=== PATIENT | female | born 1945 | race Caucasian/White ===

== ENCOUNTER → 2021-03-06 | Outpatient (CLI) | payer MEDICARE, OTHER ==
[~2021-03-06] VITALS: Ht 172 cm; Wt 59.0 kg
[~2021-03-06] MED LIST: CASIRIVIMAB/IMDEVIMAB 2,400 MG/NS 250 ML IV ONE; EPINEPHrine INJECTION 1 MG/ML AMP IM PRN; diphenhydrAMINE 50 MG/ML INJ (BENADRYL) IV PRN
[2021-03-06 13:40] VITALS: BP 163/91
[2021-03-06 15:20] VITALS: BP 149/86
[2021-03-06 16:10] VITALS: BP 145/91
== END ==
LOC: INFUSION 13:53
PROVIDERS: ATTEND Nurse Practitioner Family
DX: Z23 Encounter for immunization (principal); U07.1 COVID-19; J20.8 Acute bronchitis due to other specified organisms; I10 Essential (primary) hypertension

== ENCOUNTER 2022-10-04 08:34 | Emergency (ER) | payer MEDICARE ==
[~2022-10-04] VITALS: Ht 157 cm; Wt 58.9 kg
--- NOTE | 2022-10-04 08:59 | ED General ---
General Chief Complaint: General Problems/Pain Stated Complaint: WEAKNESS Nursing Triage Note: PT PRESENTS TO ED VIA EMS FROM HOME FOR COMPLAINTS OF INCREASED WEAKNESS STARTING THIS AM. PT REPORTS TO EMS THAT HE WAS UNABLE TO GET PT OFF THE TOILET BY HIMSELF THIS AM. PT STATES SHE WAS DIAGNOSED WITH A UTI LAST NIGHT WITH A HOME TEST AND HER DR PRESCRIBED ANTIBIOTICS. Source of Information: Patient Exam Limitations: No Limitations History of Present Illness Date Seen by Provider: Oct 04, 2022 Time Seen by Provider: 08:42 Initial Comments 77-year-old female brought to the emergency department by EMS this morning, chief complaint generalized weakness. 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 She is essentially full care at home with her who is elderly and also has cancer. This morning apparently he was able to get her to the toilet but was unable to get her off the toilet due to weakness. According to the through EMS the patient recently had an at-home test for urinary tract infection. Her primary care provider recommended Keflex, the prescription was filled and started last night. She denies any complaints of pain. No headache, fever. No URI, flu symptoms. No abdominal pain, nausea or vomiting. She chronically wears a pad and is at times incontinent. No other complaints of recent illness injury or trauma. Timing/Duration: Other (chronic worsening) Severity: Moderate Associated Systoms: Denies Symptoms Allergies and Home Medications Allergies Coded Allergies: morphine (Unverified Allergy, Unknown, 03/01/06) Patient Home Medication List Home Medication List Reviewed: Yes Review of Systems Review of Systems Constitutional: see HPI EENTM: no symptoms reported Respiratory: no symptoms reported Cardiovascular: no symptoms reported Gastrointestinal: no symptoms reported Musculoskeletal: no symptoms reported, muscle cramps (left leg discomfort/weakness (chronic due to stroke - worse recently per patient)) Skin: no symptoms reported All Other Systems Reviewed Negative Unless Noted: Yes Past Dofknek-Paonwk-Npxvbg Hx Patient Social History Tobacco Use?: No Substance use?: No Alcohol Use?: No Pt feels they are or have been: No Past Medical History Surgery/Hospitalization HX: pmh: cva, mi, l sided paralysis Physical Exam Vital Signs Vital Signs - First Documented 10/04/22 08:40 Temp 37.6 Pulse 94 Resp 18 B/P (MAP) 168/82 (110) Pulse Ox 92 Capillary Refill : Less Than 3 Seconds Height, Weight, BMI Height: '" Weight: lbs. oz. 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 Norm as Tested, Other (chronic hemiplegia left upper extremity > lower extremity; normal sensation throughout per patient) Skin: Normal Color, Warm/Dry Progress/Results/Core Measures Suspected Sepsis SIRS Temperature: Pulse: 94 Respiratory Rate: 18 Laboratory Tests 10/04/22 08:54: White Blood Count 14.1H Blood Pressure 168 /82 Mean: 110 Laboratory Tests 10/04/22 08:54: Creatinine 0.96, Platelet Count 388 Results/Orders Lab Results Laboratory Tests Test 10/04/22 08:54 10/04/22 09:02 Range/Units White Blood Count 14.1 H 4.3-11.0 10^3/uL Red Blood Count 3.31 L 3.80-5.11 10^6/uL Hemoglobin 12.1 11.5-16.0 g/dL Hematocrit 32 L 35-52 % Mean Corpuscular Volume 98 80-99 fL Mean Corpuscular Hemoglobin 37 H 25-34 pg Mean Corpuscular Hemoglobin Concent 38 H 32-36 g/dL Red Cell Distribution Width 16.3 H 10.0-14.5 % Platelet Count 388 130-400 10^3/uL Mean Platelet Volume 9.1 9.0-12.2 fL Immature Granulocyte % (Auto) 1 % Neutrophils (%) (Auto) 89 H 42-75 % Lymphocytes (%) (Auto) 5 L 12-44 % Monocytes (%) (Auto) 5 0-12 % Eosinophils (%) (Auto) 0 0-10 % Basophils (%) (Auto) 0 0-10 % Neutrophils # (Auto) 12.5 H 1.8-7.8 10^3/uL Lymphocytes # (Auto) 0.7 L 1.0-4.0 10^3/uL Monocytes # (Auto) 0.6 0.0-1.0 10^3/uL Eosinophils # (Auto) 0.1 0.0-0.3 10^3/uL Basophils # (Auto) 0.1 0.0-0.1 10^3/uL Immature Granulocyte # (Auto) 0.1 0.0-0.1 10^3/uL Neutrophils % (Manual) 82 % Lymphocytes % (Manual) 4 % Monocytes % (Manual) 4 % Eosinophils % (Manual) 0 % Basophils % (Manual) 0 % Band Neutrophils 10 % Poikilocytosis SLIGHT Anisocytosis SLIGHT Elliptocytes SLIGHT Sodium Level 137 135-145 MMOL/L Potassium Level 3.3 L 3.6-5.0 MMOL/L Chloride Level 103 98-107 MMOL/L Carbon Dioxide Level 21 21-32 MMOL/L Anion Gap 13 5-14 MMOL/L Blood Urea Nitrogen 14 7-18 MG/DL Creatinine 0.96 0.60-1.30 MG/DL Estimat Glomerular Filtration Rate 60 BUN/Creatinine Ratio 15 Glucose Level 120 H 70-105 MG/DL Calcium Level 8.6 8.5-10.1 MG/DL Urine Color YELLOW Urine Clarity CLEAR Urine pH 7.5 5-9 Urine Specific [place] 1.020 1.016-1.022 Urine Protein TRACE H NEGATIVE Urine Glucose (UA) NEGATIVE NEGATIVE Urine Ketones NEGATIVE NEGATIVE Urine Nitrite POSITIVE H NEGATIVE Urine Bilirubin NEGATIVE NEGATIVE Urine Urobilinogen 0.2 < = 1.0 MG/DL Urine Leukocyte Esterase TRACE H NEGATIVE Urine RBC (Auto) TRACE-I H NEGATIVE Urine RBC 2-5 H /HPF Urine WBC 2-5 /HPF Urine Crystals NONE /LPF Urine Bacteria MODERATE H /HPF Urine Casts NONE /LPF Urine Mucus NEGATIVE /LPF Urine Culture Indicated YES My Orders Orders - ROBINA RICHMOND MD Cbc With Automated Diff (10/04/22 08:54) Basic Metabolic Panel (10/04/22 08:54) Ua Culture If Indicated (10/04/22 08:54) Manual Differential (10/04/22 08:54) [employer] Supervisor Consult (10/04/22 09:25) Urine Culture (10/04/22 09:02) Cephalexin Capsule (Keflex Capsule) (10/04/22 10:28) Vital Signs/I&O 10/04/22 10/04/22 08:40 13:45 Temp 37.6 Pulse 94 87 Resp 18 18 B/P (MAP) 168/82 (110) 161/76 Pulse Ox 92 98 Capillary Refill : Less Than 3 Seconds Blood Pressure Mean: 110 Progress Note : Time: 13:24 Progress Note mop worker, Iliana has seen the patient and talked with her and her spouse. He is not ready at this time to make a decision on home health versus assisted living versus long term placement. He was provided with a list of local resources. He would like to take her home this evening. He has a grandson who can help him this evening and periodically with transfers. Patient does have a urinary tract infection. A sample has been sent for culture. She has been prescribed Keflex. My recommendation will be that she continues this medication until completion of the antibiotic. She has no clinical or objective findings to warrant further studies from the emergency department. No complaints of chest pain, cough or shortness of breath. Chest x-ray considered but history and physical examination does not support the need. No other concerns for advanced imaging such as CT chest or abdomen pelvis or head. She does not have any new strokelike symptoms. Patient was offered her cephalexin as prescribed by her primary care physician as she missed her morning dose, she declined saying she would rather take the medicine she was already prescribed. I also offered IV antibiotics and she declined. Patient recommended to follow-up with her primary care physician. All questions have been sought and answered. Patient is stable for discharge. Departure Impression Primary Impression: Urinary tract infection Qualified Codes: N39.0 - Urinary tract infection, site not specified Additional Impression: Generalized weakness Disposition: 01 HOME, SELF-CARE Condition: Stable Departure-Patient Inst. Decision time for Depature: 13:25 Referrals: JOSELUIS WSAIN MD (PCP/Family) Primary Care Physician Patient Instructions: Urinary Tract Infection, Adult (DC), Weakness ED Add. Discharge Instructions: Encourage fluids and good nutrition so that she stays well-hydrated. Take the antibiotics as prescribed by your primary care provider as directed until they are finished. If she has any fevers, worsening weakness, shortness of breath or new, emergent concerns please bring her back to the emergency department for reevaluation. Follow-up with your primary care physician in 1 week. Copy Copies To 1: JOSELUIS SWAIN MD, KATHRYN M MD Oct 04, 2022 08:59
[2022-10-04 09:02] LABS: BASOPHILS # (AUTO) 0.1 10^3/uL (0.0-0.1); BASOPHILS % (AUTO) 0 % (0-10); EOSINOPHILS # (AUTO) 0.1 10^3/uL (0.0-0.3); EOSINOPHILS % (AUTO) 0 % (0-10); HEMATOCRIT 32 % (35-52); HEMOGLOBIN 12.1 g/dL (11.5-16.0); LYMPHOCYTES # (AUTO) 0.7 10^3/uL (1.0-4.0); LYMPHOCYTES % (AUTO) 5 % (12-44); MEAN CORPUSCULAR HEMOGLOBIN 37 pg (25-34); MEAN CORPUSCULAR HGB CONC 38 g/dL (32-36); MEAN CORPUSCULAR VOLUME 98 fL (80-99); MEAN PLATELET VOLUME 9.1 fL (9.0-12.2); MONOCYTES # (AUTO) 0.6 10^3/uL (0.0-1.0); MONOCYTES % (AUTO) 5 % (0-12); NEUTROPHILS # (AUTO) 12.5 10^3/uL (1.8-7.8); NEUTROPHILS % (AUTO) 89 % (42-75); PLATELET COUNT 388 10^3/uL (130-400); WHITE BLOOD COUNT 14.1 10^3/uL (4.3-11.0)
[2022-10-04 09:12] LABS: POTASSIUM 3.3 MMOL/L (3.6-5.0)
[2022-10-04 09:13] LABS: CALCIUM 8.6 MG/DL (8.5-10.1)
[2022-10-04 09:17] LABS: CREATININE SERUM 0.96 MG/DL (0.60-1.30)
[2022-10-04 09:18] LABS: BILIRUBIN,URINE NEGATIVE (NEGATIVE); CLARITY,URINE CLEAR; COLOR,URINE YELLOW; GLUCOSE, URINE (UA) NEGATIVE (NEGATIVE); KETONES,URINE NEGATIVE (NEGATIVE); LEUKOCYTE ESTERASE ,URINE TRACE (NEGATIVE); NITRITE,URINE POSITIVE (NEGATIVE); PH,URINE 7.5 (5-9); PROTEIN,URINE TRACE (NEGATIVE)
[2022-10-04 09:26] LABS: BACTERIA,URINE MODERATE /HPF
[2022-10-04 09:42] LABS: BAND NEUTROPHILS 10 %; BASOPHILS % (MANUAL) 0 %; EOSINOPHILS % (MANUAL) 0 %; LYMPHOCYTES % (MANUAL) 4 %; MONOCYTES % (MANUAL) 4 %; NEUTROPHILS % (MANUAL) 82 %; POIKILOCYTOSIS SLIGHT
[2022-10-04 09:43] LABS: ANISOCYTOSIS SLIGHT; ELLIPT/OVALOCYTES SLIGHT
[2022-10-04] MEDS ORDERED: CEPHALEXIN 250 MG (KEFLEX) CAP PO STA (10:28)
[2022-10-04 13:45] VITALS: BP 161/76
== END 2022-10-04 13:47 | disposition home or self-care (01) ==
LOC: EDUNIT# 08:34 → ER 08:36
DX: N39.0 Urinary tract infection, site not specified (principal); R53.1 Weakness
CPT/HCPCS: 36415; 51701; 80048; 81000; 85007; 85027; 87077; 87088; 87186

== ENCOUNTER → 2022-10-11 | Outpatient (CLI) | payer MEDICARE | LOC: GIR 17:25 | PROVIDERS: ATTEND Family Medicine | DX: Z01.419 Encounter for gynecological examination (general) (routine) without abnormal findings (principal) | CPT/HCPCS: 87210 ==